=== PATIENT | female | born 1965 | race Two or more races ===

== ENCOUNTER → 2017-08-17 | Outpatient (CLI) | payer OTHER ==
[~2017-08-17] MED LIST: ASPIR-TRIN325 MG; LEXAPRO20 MG; LIPIODOL10 ML; PEPCID40 MG PO; PLAVIX75 MG; PROTONIX40 MG; PROTONIX40 MG PO; TOPAMAX50 MG; ZANTAC300 MG PO; ZOFRAN4 MG PO; ZOFRAN8 MG PO
== END | disposition home or self-care (01) ==
LOC: RAD 16:45
DX: I15.8 Other secondary hypertension (principal); I10 Essential (primary) hypertension

== ENCOUNTER 2017-08-19 12:08 | Outpatient (CLI) | payer OTHER | END 2017-08-19 16:10 | disposition home or self-care (01) | LOC: RAD 501 12:08 | DX: J01.90 Acute sinusitis, unspecified (principal); J01.20 Acute ethmoidal sinusitis, unspecified ==

== ENCOUNTER 2017-08-19 14:58 | Outpatient (CLI) | payer OTHER | END 2017-08-19 15:00 | disposition home or self-care (01) | LOC: EKG 14:58 | DX: R94.31 Abnormal electrocardiogram [ECG] [EKG] (principal) ==